=== PATIENT | female | born 1995 | race Caucasian/White ===

== ENCOUNTER → 2019-01-03 | Outpatient (CLI) | payer SELFPAY | LOC: LAB 14:02 | PROVIDERS: ATTEND Nurse Practitioner | DX: Z11.1 Encounter for screening for respiratory tuberculosis (principal) | CPT/HCPCS: 36415 ==

== ENCOUNTER 2020-07-22 10:15 | Emergency (ER) | payer OTHER ==
--- NOTE | 2020-07-22 10:41 | RADIOLOGY REPORT (SQ) ---
EXAM DESCRIPTION: CHEST SINGLE VIEW IMAGES COMPLETED DATE/TIME: 07/22/2020 10:31 am REASON FOR STUDY: cough COMPARISON: None. EXAM PARAMETERS: NUMBER OF VIEWS: One view. TECHNIQUE: Single frontal radiographic view of the chest acquired. RADIATION DOSE: NA LIMITATIONS: None. FINDINGS: LUNGS AND PLEURA: No opacities, masses or pneumothorax. No pleural effusion. MEDIASTINUM AND HILAR STRUCTURES: No masses. Contour normal. HEART AND VASCULAR STRUCTURES: Heart normal in size. Normal vasculature. BONES: No acute findings. HARDWARE: None in the chest. OTHER: No other significant finding. IMPRESSION: NO ACUTE RADIOGRAPHIC FINDING IN THE CHEST. TECHNICAL DOCUMENTATION: JOB ID: [id number] 2010 [employer]- All Rights Reserved Reading location - IP/workstation name: [email or web address]
--- NOTE | 2020-07-22 10:42 | ER Document Report ---
ED Medical Screen (RME) - General Chief Complaint: Cough Stated Complaint: COUGH,CONGESTION,HEADACHE Time Seen by Provider: 07/22/20 10:36 Mode of Arrival: Ambulatory Information source: Patient Notes: Patient presents complaining of headache, shortness of breath and cough for the past 4 days. Patient reports fatigue for the past 6 days. Patient reports decreased appetite and sore throat. Patient denies any significant medical history. I have greeted and performed a rapid initial assessment of this patient. A comprehensive ED assessment and evaluation of the patient, analysis of test results and completion of the medical decision making process will be conducted by additional ED providers. TRAVEL OUTSIDE OF THE [place] IN LAST 30 DAYS: No Physical Exam - Vital signs Vitals: Temp Pulse Resp BP Pulse Ox 98.6 F 84 16 127/78 H 98 07/22/20 10:25 07/22/20 10:25 07/22/20 10:25 07/22/20 10:25 07/22/20 10:25 - Notes Notes: Full physical exam could not be performed due to covid 19 isolation protocols. Constitutional: Nontoxic appearance, no acute distress Eyes: Nonicteric, extraocular movements intact, sclera clear Cardiovascular: No JVD Respiratory: Nonlabored breathing, no use of accessory muscles, no tachypnea Gastrointestinal: Abdomen not distended Muculoskeletal: Moves all extremities well Skin: Normal color Neuro: Awake alert oriented, normal speech Psych: Normal mood and affect Course - Vital Signs Vital signs: Temp Pulse Resp BP Pulse Ox 98.6 F 84 16 127/78 H 98 07/22/20 10:25 07/22/20 10:25 07/22/20 10:25 07/22/20 10:25 07/22/20 10:25
--- NOTE | 2020-07-22 11:04 | ER Document Report ---
ED Flu Like - General Chief Complaint: Flu Symptoms Stated Complaint: COUGH,CONGESTION,HEADACHE Time Seen by Provider: 07/22/20 10:36 Mode of Arrival: Ambulatory Notes: CHIEF COMPLAINT: Fatigue cough shortness of breath HPI: 25-year-old female presenting for fatigue for 6 days cough and shortness of breath for 4 days. No fever. Denies abdominal pain nausea vomiting. Denies chest pain. Patient also reports very mild sore throat for the last 3 to 4 days ROS: See HPI - all other systems were reviewed and are otherwise negative Constitutional: no fever Eyes: no drainage, no blurred vision ENT: no runny nose, no sore throat Cardiovascular: no chest pain Resp: + SOB, + cough GI: no vomiting, no diarrhea, no abdominal pain : no dysuria Integumentary: no rash Allergy: no hives Musculoskeletal: no extremity pain or swelling Neurological: no numbness/tingling, no weakness MEDICATIONS: I agree with the patient medications as charted by the RN. ALLERGIES: I agree with the allergies as charted by the RN. PAST MEDICAL HISTORY/PAST SURGICAL HISTORY: Reviewed and agree as charted by RN. SOCIAL HISTORY: Reviewed and agree as charted by RN. FAMILY HISTORY: No significant familial comorbid conditions directly related to patient complaint EXAM: Reviewed vital signs as charted by RN. CONSTITUTIONAL: Alert and oriented and responds appropriately to questions. Well-appearing; well-nourished HEAD: Normocephalic; atraumatic EYES: PERRL; Conjunctivae clear, sclerae non-icteric ENT: normal nose; no rhinorrhea; moist mucous membranes; pharynx without lesions noted, no uvula edema or deviation, no tonsillar hypertrophy, phonation normal NECK: Supple without meningismus; non-tender; no cervical lymphadenopathy, no masses CARD: RRR; no murmurs, no clicks, no rubs, no gallops; symmetric distal pulses RESP: Normal chest excursion without splinting or tachypnea; breath sounds clear and equal bilaterally; no wheezes, no rhonchi, no rales, pulse oximetry 98% on room air not hypoxic ABD/GI: Normal bowel sounds; non-distended; soft, non-tender, no rebound, no guarding; no palpable organomegaly or masses. BACK: The back appears normal and is non-tender to palpation, there is no CVA tenderness EXT: Normal ROM in all joints; non-tender to palpation; no cyanosis, no effusions, no edema SKIN: Normal color for age and race; warm; dry; good turgor; no acute lesions noted NEURO: Moves all extremities equally; Motor and sensory function intact PSYCH: The patient's mood and manner are appropriate. Grooming and personal hygiene are appropriate. MDM: 25-year-old female presenting with flulike symptoms. Initial screening labs including COVID, flu, strep via triage process. Lung sounds are clear to auscultation. Patient does not feel that she has mononucleosis. [place] [facility] [place] to [place]. She states that her fianc is not ill with upper respiratory symptoms or sore throat TRAVEL OUTSIDE OF THE [place] IN LAST 30 DAYS: No - Related Data Home Medications: zoloft Past Medical History - General Information source: Patient - Social History Smoking Status: Never Smoker Frequency of alcohol use: None Drug Abuse: None Family History: Reviewed & Not Pertinent Patient has homicidal ideation: No Psychiatric Medical History: Reports: Hx Depression Past Surgical History: Reports: Hx Appendectomy, Hx Cholecystectomy, Hx Tonsillectomy Physical Exam - Vital signs Vitals: Temp Pulse Resp BP Pulse Ox 98.6 F 84 16 127/78 H 98 07/22/20 10:25 07/22/20 10:25 07/22/20 10:25 07/22/20 10:25 07/22/20 10:25 Course - Re-evaluation Re-evalutation: 07/22/20 14:08 Influenza and strep testing are negative. Patient will be a person under investigation for COVID-19 at this time pending results. Will place her on an albuterol inhaler for cough and shortness of breath. - Vital Signs Vital signs: Temp Pulse Resp BP Pulse Ox 98.6 F 84 16 127/78 H 98 07/22/20 10:25 07/22/20 10:25 07/22/20 10:25 07/22/20 10:25 07/22/20 10:25 Discharge - Discharge Clinical Impression: Person under investigation for COVID-19, Cough, Sore throat (viral) Condition: Stable Disposition: HOME, SELF-CARE Additional Instructions: Use the albuterol inhaler 2 puffs every 4 hours as needed for shortness of breath or cough. Continue Motrin Tylenol for body ache. Your strep and influenza testing today were negative. You are considered a person under investigation for COVID-19 at this time. Self quarantine at home pending her test results which may take 2 to 5 days. You should receive notification from the hospital about your test results. Prescriptions: Albuterol Sulfate [Proair HFA Inhalation Aerosol 8.5 gm MDI] 2 puff IH Q4H PRN #1 mdi PRN Reason: Forms: Return to Work Referrals: STEPHANIE OLIVEIRA MD [COMMUNITY BASED STAFF] - Follow up as needed
[2020-07-22 13:57] LABS: A TYPE INFLUENZA AG NEGATIVE (NEGATIVE); B INFLUENZA AG NEGATIVE (NEGATIVE)
[2020-07-22 14:40] VITALS: BP 136/82
== END 2020-07-22 14:39 | disposition home or self-care (01) ==
LOC: ER 10:15
DX: R05 Cough (principal); J02.8 Acute pharyngitis due to other specified organisms; B97.89 Other viral agents as the cause of diseases classified elsewhere; R06.02 Shortness of breath; R53.83 Other fatigue; F32.9 Major depressive disorder, single episode, unspecified; Z79.899 Other long term (current) drug therapy; Z20.828 Contact with and (suspected) exposure to other viral communicable diseases
CPT/HCPCS: 99284; 87070; 87880; 87635; 87804; 71045; C9803